=== PATIENT | female | born 2000 | race Hispanic/Latino ===

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

== ENCOUNTER 2021-01-24 11:26 | Emergency (ER) | payer MEDICAID ==
[~2021-01-24] VITALS: Ht 157.5 cm; Wt 118.8 kg
[2021-01-24 11:46] VITALS: BP 120/66
[2021-01-24] MEDS ORDERED: IPRATROPIUM/ALBUTEROL SULFATE 3 ML SOLUTION IH ONE ×2 (12:15→13:24)
[2021-01-24] MEDS ORDERED: APAP-CODEINE 300/30MG TAB PO ONE ×2 (12:15→13:45)
[2021-01-24] MEDS ORDERED: 0.9%NACL 1000ML 1,000 ML IV ONE ×2 (12:15→13:45)
[2021-01-24] MEDS ORDERED: SOLU-MEDROL 125MG VIAL IVP ONE ×2 (12:15→13:45)
[2021-01-24] MEDS ORDERED: AMOX/CLAV 875/125MG TAB PO ONE ×2 (12:15→13:45)
[2021-01-24] MEDS ORDERED: ALBUTEROL 0.083% 2.5 MG/3 ML INH IH ONE (13:24)
[2021-01-24 13:28] LABS: APPEARANCE,URINE Clear (CLEAR); BILIRUBIN,URINE Negative (NEGATIVE); COLOR,URINE Yellow (YELLOW); GLUCOSE, URINE (UA) Negative (NEGATIVE); KETONES,URINE Negative (NEGATIVE); LEUKOCYTE ESTERASE ,URINE Trace (NEGATIVE); NITRATE,URINE Negative (NEGATIVE); OCCULT BLOOD,URINE Negative (NEGATIVE); PROTEIN,URINE Negative (NEGATIVE); UROBILINOGEN,URINE 0.2 mg/dL (0.2-1.0)
[2021-01-24 13:36] LABS: HCG,QUAL RESULT NEGATIVE (NEGATIVE)
[2021-01-24 13:41] LABS: BACTERIA,URINE Rare /HPF (None Seen); RBC,URINE 0-1 /HPF (0-1); SQUAMOUS EPITHELIAL CELL,UR Rare /HPF (0-2); WBC,URINE 0-1 /HPF (0-1)
[2021-01-24 13:59] VITALS: BP 110/71
[2021-01-24] MEDS ORDERED: ALBUTEROL 0.042% 1.25MG/3ML IH SCH (14:00)
[2021-01-24] MEDS ORDERED: ALBU1.252 IH (14:02)
[2021-01-24] MEDS ORDERED: AMOX-429 PO (14:02)
[2021-01-24] MEDS ORDERED: PRED20TA3 PO (14:02)
[2021-01-24] MEDS ORDERED: CODE10LI PO (14:02)
[2021-01-24 15:10] VITALS: BP 114/68
== END 2021-01-24 15:34 | disposition home or self-care (01) ==
LOC: EDH 11:26
DX: J40 Bronchitis, not specified as acute or chronic (principal)
CPT/HCPCS: 71045; 81001; 81025; 87804 ×2; 87880; 94640 ×2; 96361; 96365; 99285; J2930

== ENCOUNTER 2023-05-25 18:22 | Observation (INO) | payer MEDICAID ==
[~2023-05-25] VITALS: Ht 152.4 cm; Wt 121.1 kg
[~2023-05-25 18:22] MED LIST changes: +ALBU1.252 IH; +AMOX-429 PO; +CODE10LI PO; +PRED20TA3 PO
[2023-05-25 18:25] VITALS: BP 115/60; PULSE 103; RESP 20
[2023-05-25] MEDS ORDERED: LACTATED RINGERS 1000ML 1,000 ML IV PRN (19:00)
[2023-05-25 19:27] LABS: APPEARANCE,URINE CLOUDY (CLEAR); BILIRUBIN,URINE NEGATIVE (NEGATIVE); COLOR,URINE YELLOW (YELLOW); GLUCOSE, URINE (UA) 30 mg/dL (NEGATIVE); KETONES,URINE 5 mg/dL (NEGATIVE); LEUKOCYTE ESTERASE ,URINE 250 Leu/uL (NEGATIVE); NITRATE,URINE NEGATIVE (NEGATIVE); OCCULT BLOOD,URINE NEGATIVE (NEGATIVE); PROTEIN,URINE 20 mg/dL (NEGATIVE); UROBILINOGEN,URINE 0.2 mg/dL (0.2-1.0)
[2023-05-25 19:44] LABS: ADD UA MICROSCOPIC YES
[2023-05-25 19:46] LABS: BACTERIA,URINE RARE /HPF (None Seen); MUCUS,URINE MOD LPF (None Seen); SQUAMOUS EPITHELIAL CELL,UR MOD /HPF (0-2)
== END 2023-05-25 21:30 | disposition home or self-care (01) ==
LOC: EDH 18:22 → LDH 18:23 → UNDOADMOB 18:23 → UNDODISOB 21:30
PROVIDERS: ADMIT Obstetrics & Gynecology; ATTEND Obstetrics & Gynecology
DX: O26.893 Other specified pregnancy related conditions, third trimester (principal); R10.9 Unspecified abdominal pain; G43.909 Migraine, unspecified, not intractable, without status migrainosus; Z3A.33 33 weeks gestation of pregnancy; Z87.891 Personal history of nicotine dependence
CPT/HCPCS: 96360; 96361; 87088; 81001; G0378 ×3; G0379

== ENCOUNTER 2023-06-25 00:13 | Observation (INO) | payer MEDICAID ==
[~2023-06-25] VITALS: Ht 157.5 cm; Wt 128.4 kg
[2023-06-25 00:16] VITALS: BP 132/76; PULSE 97; RESP 20
[2023-06-25] MEDS ORDERED: MEPERIDINE-PF 50 MG/ML SYG IVP PRN (01:30)
[2023-06-25] MEDS ORDERED: PROMETHAZINE HCL 25 MG/ML 1ML AMPULE IM PRN (01:30)
[2023-06-25] MEDS: LACTATED RINGERS 1000ML 1,000 ML IV PRN ×3 (02:05→14:37)
[2023-06-25 02:24] LABS: HEMATOCRIT 31.8 % (36-48); MEAN CORPUSCULAR HEMOGLOBIN 24.1 pg (27.0-33.0); MEAN CORPUSCULAR HGB CONC 32.1 g/dL (32.0-36.0); PLATELET COUNT (AUTO) 183 K/uL (130-400); RED BLOOD CELL COUNT(AUTO) 4.24 MIL/uL (4.00-5.50); RED CELL DISTRIBUTION WIDTH 14.6 % (11.0-15.5); WHITE BLOOD COUNT (AUTO) 10.2 K/uL (4.8-10.8)
[2023-06-25 02:42] LABS: APPEARANCE,URINE CLEAR (CLEAR); BILIRUBIN,URINE NEGATIVE (NEGATIVE); COLOR,URINE YELLOW (YELLOW); GLUCOSE, URINE (UA) 300 mg/dL (NEGATIVE); KETONES,URINE NEGATIVE (NEGATIVE); LEUKOCYTE ESTERASE ,URINE 250 Leu/uL (NEGATIVE); NITRATE,URINE NEGATIVE (NEGATIVE); OCCULT BLOOD,URINE NEGATIVE (NEGATIVE); PH,URINE 6.5 (5.0-8.0); PROTEIN,URINE 20 mg/dL (NEGATIVE); UROBILINOGEN,URINE 0.2 mg/dL (0.2-1.0)
[2023-06-25 02:50] LABS: ADD UA MICROSCOPIC YES
[2023-06-25 02:52] LABS: MUCUS,URINE FEW LPF (None Seen); SQUAMOUS EPITHELIAL CELL,UR FEW /HPF (0-2)
[2023-06-25] MEDS ORDERED: OXYTOCIN-LR 30 UNITS/500ML 500 ML IV SCH (07:30)
[2023-06-25] MEDS ORDERED: EPHEDRINE SULFATE 50 MG/ML AMPULE IVP PRN (07:30)
[2023-06-25] MEDS ORDERED: NALOXONE HCL 0.4 MG/1 ML ML IV PRN (07:30)
[2023-06-25] MEDS ORDERED: LACTATED RINGERS 500 ML 500 ML IV PRN (07:30)
[2023-06-25] MEDS ORDERED: ROPIVACAINE 0.2% 100ML VIAL 100 ML EP PRN (07:30)
[2023-06-26] MEDS ORDERED: DINOPROSTONE 10 MG VAGINAL SUPP VG ONE
[2023-06-26] MEDS: LACTATED RINGERS 1000ML 1,000 ML IV PRN ×2 (03:06→13:32)
[2023-06-26] MEDS ORDERED: METF-444 PO (08:42)
[2023-06-26] MEDS ORDERED: AEC81 PO (08:42)
[2023-06-26] MEDS ORDERED: pnv PO (08:42)
[2023-07-04] MEDS ORDERED: ACET-2079 PO (18:03)
[2023-07-04] MEDS ORDERED: IBUP-2070 PO (18:04)
[2023-07-04] MEDS ORDERED: FERS325 PO (18:05)
== END 2023-06-26 15:57 | disposition home or self-care (01) ==
LOC: EDH 00:13 → OBSVTOIN 00:21 → INTOOBSV 00:21 → LDH 00:21
PROVIDERS: ADMIT Internal Medicine; ATTEND Internal Medicine
DX: O62.9 Abnormality of forces of labor, unspecified (principal); O24.419 Gestational diabetes mellitus in pregnancy, unspecified control; Z3A.38 38 weeks gestation of pregnancy
CPT/HCPCS: 96361 ×2; 96365; 96366; 86592; 85027; 86850; 86900; 86901; 87088; 82948; 87340; 81001; 36415; J7120 ×2; G0378

== ENCOUNTER 2023-07-10 22:17 | Emergency (ER) | payer MEDICAID ==
[~2023-07-10] VITALS: Ht 154.9 cm; Wt 120.7 kg
[~2023-07-10 22:17] MED LIST changes: +ACET-2079 PO; -AMOX-429 PO; -CODE10LI PO; +FERS325 PO; +IBUP-2070 PO; -IRON1TAB91 PO; -PRED20TA3 PO; -PREN-18 PO; +pnv PO
[2023-07-10 22:40] VITALS: BP 122/65; PULSE 77; RESP 18; O2SAT 99
== END 2023-07-10 23:05 | disposition home or self-care (01) ==
LOC: EDH 22:17
DX: K92.1 Melena (principal); K59.00 Constipation, unspecified; Z48.03 Encounter for change or removal of drains; Z79.82 Long term (current) use of aspirin; Z79.84 Long term (current) use of oral hypoglycemic drugs; Z79.899 Other long term (current) drug therapy; Z98.890 Other specified postprocedural states
CPT/HCPCS: 99281

== ENCOUNTER 2023-07-11 15:26 | Emergency (ER) | payer MEDICAID ==
[~2023-07-11] VITALS: Ht 152.4 cm; Wt 120.7 kg
[2023-07-11 17:50] VITALS: BP 147/75; PULSE 81; RESP 18; O2SAT 98
== END 2023-07-11 18:03 | disposition home or self-care (01) ==
LOC: EDH 15:26
DX: O90.0 Disruption of cesarean delivery wound (principal); Z79.82 Long term (current) use of aspirin; Z79.84 Long term (current) use of oral hypoglycemic drugs; Z79.899 Other long term (current) drug therapy; Z98.890 Other specified postprocedural states
CPT/HCPCS: 99281

== ENCOUNTER 2023-07-20 12:25 | Emergency (ER) | payer MEDICAID ==
[~2023-07-20] VITALS: Ht 152.4 cm; Wt 112.9 kg
[2023-07-20] MEDS ORDERED: HYDROCODONE/ACETAMINOPHEN 5/325 MG TAB PO ONE (13:00)
[2023-07-20 13:24] LABS: BASOPHILS # (AUTO) 0.03 K/uL (0.00-0.20); BASOPHILS % (AUTO) 0.5 % (0.0-5.0); EOSINOPHILS # (AUTO) 0.06 K/uL (0.00-0.70); EOSINOPHILS % (AUTO) 0.9 % (0.0-8.0); HEMATOCRIT 30.5 % (36-48); IMMATURE GRANULOCYTE ABSOLUTE 0.01 K/uL (0-1); LYMPHOCYTES # (AUTO) 1.9 K/uL (1.0-4.8); MEAN CORPUSCULAR HEMOGLOBIN 22.5 pg (27.0-33.0); MEAN CORPUSCULAR HGB CONC 30.8 g/dL (32.0-36.0); MEAN CORPUSCULAR VOLUME 73.1 fL (79-99); MONOCYTES # (AUTO) 0.3 K/uL (0.1-1.0); MONOCYTES % (AUTO) 4.8 % (3.0-13.0); NEUTROPHILS # (AUTO) 4.3 K/uL (1.8-7.7); NEUTROPHILS % (AUTO) 65.6 % (40.0-77.0); PLATELET COUNT (AUTO) 263 K/uL (130-400); RED BLOOD CELL COUNT(AUTO) 4.17 MIL/uL (4.00-5.50); WHITE BLOOD COUNT (AUTO) 6.6 K/uL (4.8-10.8)
[2023-07-20 13:30] LABS: CREATININE 0.5 mg/dL (0.5-1.5); POTASSIUM 3.7 mmol/L (3.5-5.1)
[2023-07-20] MEDS ORDERED: IBUP-2077 PO (14:40)
[2023-07-20] MEDS ORDERED: CLIN-141 PO (14:40)
[2023-07-20 14:43] VITALS: BP 100/60; PULSE 83; RESP 18; O2SAT 98
== END 2023-07-20 14:53 | disposition home or self-care (01) ==
LOC: EDH 12:25
DX: T81.41XA Infection following a procedure, superficial incisional surgical site, initial encounter (principal)
CPT/HCPCS: 36415; 80048; 83605; 85025; 87040

== ENCOUNTER 2023-09-24 17:03 | Emergency (ER) | payer MEDICAID ==
[~2023-09-24 17:03] MED LIST changes: +CLIN-141 PO; +IBUP-2077 PO
== END 2023-09-24 19:25 | disposition left against medical advice (07) ==
LOC: EDH 17:03
DX: R50.9 Fever, unspecified (principal); Z53.21 Procedure and treatment not carried out due to patient leaving prior to being seen by health care provider

== ENCOUNTER 2023-11-08 21:25 | Emergency (ER) | payer MEDICAID ==
[~2023-11-08] VITALS: Ht 154.9 cm; Wt 117.0 kg
[2023-11-08] MEDS: 0.9%NACL 1000ML 1,000 ML IV ONE (22:35)
[2023-11-08] MEDS: ONDANSETRON 4MG INJ IVP ONE (22:36)
[2023-11-08] MEDS: FAMOTIDINE 20MG VIAL IV ONE (22:36)
[2023-11-08 22:37] LABS: BASOPHILS # (AUTO) 0.02 K/uL (0.00-0.20); BASOPHILS % (AUTO) 0.2 % (0.0-5.0); EOSINOPHILS # (AUTO) 0.04 K/uL (0.00-0.70); EOSINOPHILS % (AUTO) 0.5 % (0.0-8.0); HEMATOCRIT 33.4 % (36-48); IMMATURE GRANULOCYTE ABSOLUTE 0.03 K/uL (0-1); LYMPHOCYTES # (AUTO) 1.8 K/uL (1.0-4.8); LYMPHOCYTES % (AUTO) 20.8 % (21.0-51.0); MEAN CORPUSCULAR HGB CONC 31.4 g/dL (32.0-36.0); MONOCYTES # (AUTO) 0.4 K/uL (0.1-1.0); MONOCYTES % (AUTO) 4.8 % (3.0-13.0); NEUTROPHILS # (AUTO) 6.2 K/uL (1.8-7.7); NEUTROPHILS % (AUTO) 73.3 % (40.0-77.0); PLATELET COUNT (AUTO) 243 K/uL (130-400); RED BLOOD CELL COUNT(AUTO) 4.77 MIL/uL (4.00-5.50); RED CELL DISTRIBUTION WIDTH 17.9 % (11.0-15.5); WHITE BLOOD COUNT (AUTO) 8.5 K/uL (4.8-10.8)
[2023-11-08 22:47] LABS: APPEARANCE,URINE CLEAR (CLEAR); BILIRUBIN,URINE NEGATIVE (NEGATIVE); COLOR,URINE LIGHT-YELLOW (YELLOW); GLUCOSE, URINE (UA) NEGATIVE (NEGATIVE); KETONES,URINE NEGATIVE (NEGATIVE); LEUKOCYTE ESTERASE ,URINE NEGATIVE Leu/uL (NEGATIVE); NITRATE,URINE NEGATIVE (NEGATIVE); OCCULT BLOOD,URINE NEGATIVE (NEGATIVE); PH,URINE 6.5 (5.0-8.0); PROTEIN,URINE 10 mg/dL (NEGATIVE); UROBILINOGEN,URINE 0.2 mg/dL (0.2-1.0)
[2023-11-08 22:48] LABS: ADD UA MICROSCOPIC YES
[2023-11-08 22:50] LABS: BACTERIA,URINE RARE /HPF (None Seen); MUCUS,URINE RARE LPF (None Seen); RBC,URINE 0-1 /HPF (0-1); SQUAMOUS EPITHELIAL CELL,UR MOD /HPF (0-2); WBC,URINE 0-1 /HPF (0-1)
[2023-11-08 22:50] LABS: CREATININE 0.7 mg/dL (0.5-1.0); POTASSIUM 3.5 mmol/L (3.5-5.1)
[2023-11-08 22:55] LABS: ALBUMIN 3.5 g/dL (3.5-5.0); BILIRUBIN,TOTAL 0.5 mg/dL (0.2-1.0); TOTAL PROTEIN, SERUM 7.5 g/dL (6.0-8.3)
[2023-11-08 22:55] LABS: HCG,QUALITATIVE URINE NEGATIVE (NEGATIVE)
[2023-11-08] MEDS: KETOROLAC 30MG VIAL (30MG/ML) IVP ONE (23:03)
[2023-11-08] MEDS ORDERED: IOHEXOL-350 75 ML VIAL IV ONE (23:09)
[2023-11-09 00:18] VITALS: BP 117/75; PULSE 80; RESP 20; O2SAT 99
== END 2023-11-09 00:22 | disposition home or self-care (01) ==
LOC: EDH 21:25
DX: K29.00 Acute gastritis without bleeding (principal); K59.00 Constipation, unspecified; R11.2 Nausea with vomiting, unspecified
CPT/HCPCS: 99285; 74177; 96374; 96361; 96375; 80053; 83690; 85025; 81001; 81025; 36415; J7030; J2405; J1885; Q9967; S0028; J3490